=== PATIENT | male | born 1975 | race Caucasian/White ===

== ENCOUNTER 2018-07-30 13:59 | Day surgery (SDC) | payer OTHER ==
[2018-07-30] VITALS (11 sets, daily range): BP systolic 92–122; BP diastolic 56–79; PULSE 56–73; RESP 14–19; Ht 188 cm; Wt 110.4 kg
[~2018-07-30] VITALS: Ht 188 cm; Wt 110.4 kg
[~2018-07-30 13:59] MED LIST: CEFAZOLIN 2 GM/50 ML (PMX) 50 ML IVPB ONE; LACTATED RINGER'S 1,000 ML IV* SCH
--- NOTE | 2018-07-30 14:30 | HPN ---
Date/Time of Note Date/Time of Note DATE: 07/30/18 TIME: 14:30 Interval H&P Admission Note Pt. seen H&P reviewed: No system changes LUIS COSTELLO Jul 30, 2018 14:30
[2018-07-30] MEDS ORDERED: LIRA0.6P SQ (14:48)
[2018-07-30] MEDS ORDERED: INSU100I40 SQ (14:51)
[2018-07-30] MEDS ORDERED: LIDOCAINE 1% (MPF) 30 ML INJ ONE (15:55)
[2018-07-30] MEDS ORDERED: BUPIVACAINE 0.5% (SDV) 30 ML INJ ONE (15:55)
[2018-07-30] MEDS ORDERED: EPHEDrine SULFATE 50 MG/5 ML SYG IV PRN (16:00)
[2018-07-30] MEDS ORDERED: HYDROmorphONE 1 MG/5 ML IV SYRINGE IV PRN ×3 (16:00)
[2018-07-30] MEDS ORDERED: ALBUTEROL 0.083% (NEB) 2.5 MG/3 ML AMP HHN PRN (16:00)
[2018-07-30] MEDS ORDERED: ONDANSETRON 4 MG INJ IV PRN (16:00)
[2018-07-30] MEDS ORDERED: TRIMETHOBENZAMIDE 100 MG/ML VIAL IM PRN (16:00)
[2018-07-30] MEDS ORDERED: MEPERIDINE 25 MG INJ IV PRN (16:00)
[2018-07-30] MEDS ORDERED: MIDAZOLAM 1 MG/ML 2 ML INJ IV PRN (16:00)
[2018-07-30] MEDS ORDERED: PROPOFOL 200 MG INJ ONE (16:00)
[2018-07-30] MEDS ORDERED: IPRATROPIUM (NEB) 0.5 MG/2.5 ML AMP HHN PRN (16:00)
[2018-07-30] MEDS ORDERED: FENTAnyl 50 MCG/ML VIAL IV PRN ×3 (16:00)
[2018-07-30] MEDS ORDERED: LABETALOL HCL 20MG INJ IV PRN (16:00)
[2018-07-30] MEDS ORDERED: hydrALAzine 20 MG INJ IV PRN (16:00)
[2018-07-30] MEDS ORDERED: DIPHENHYDRAMINE 50 MG INJ IV PRN (16:00)
[2018-07-30] MEDS ORDERED: OXYCODONE/ACETAMINOPHEN (5/325) TAB PO PRN ×2 (16:00)
--- NOTE | 2018-07-30 16:03 | PREAC ---
Date/Time of Note Date/Time of Note DATE: 07/30/18 TIME: 16:02 Anesthesia Eval and Record Evaluation Time Pre-Procedure Interview DATE: 07/30/18 TIME: 16:02 Age 43 Sex male NPO: 8 hrs Preoperative diagnosis LEFT CTS Planned procedure LEFT CTR Past Medical History Past Medical History: Includes Endo: Diabetes (1 BS;126) Surgery & Anesthesia Issues No known issue Meds Anticoagulation: No Beta Hari within 24 hr: No Reason Beta Hari not given: Pt. not on B-Hari Reported Medications Insulin Aspart (Niacinamide) (Fiasp 100 Unit/ml Flextouch) 100 Unit/1 Ml Insuln.pen, 0 SQ USE PUMP PT USES PUMP 07/30/18 Liraglutide (Victoza 2-Aiden) 0.6 Mg/0.1 Ml Pen.injctr, 1.2 MG SQ DAILY, SYR 07/30/18 Current Medications Lactated Ringer's 1,000 ml @ 25 mls/hr Q24H IV* ; Start 07/30/18 at 06:00; Stop 07/31/18 at 21:59 Meds reviewed: Yes Allergies Coded Allergies: No Known Allergies (Unverified Allergy, Unknown, 07/30/18) Allergies Reviewed: Yes Labs/Studies Labs Reviewed: Reviewed by anesthesiologist test: N/A Studies: ECG (NL) Pre-procedure Exam Last vitals Vital Signs Date Temp Pulse Resp B/P (MAP) Pulse Ox O2 O2 Flow FiO2 Time Delivery Rate 07/30/18 98.0 73 18 122/79 97 Room Air 14:49 (93) Airway: Adequate mouth opening, Adequate thyromental dist Mallampati: Mallampati II Teeth: Normal Lung: Normal Heart: Normal ASA Physical Status ASA physical status: 2 Emergency: None Planned Anesthetic General/MAC: MAC Planned Pain Management Parenteral pain med, Local by surgeon Pre-operative Attestations Prior to commencing anesthesia and surgery, the patient was re-evaluated, there was verification of: *The patient's identity *The results of appropriate recent lab work and preoperative vital signs *The above evaluation not changing prior to induction *Anesthetic plan, risk benefits, alternative and complications discussed with patient/family; questions answered; patient/family understands, accepts and wishes to proceed. Eliud Ritchie M.D. Jul 30, 2018 16:03
[2018-07-30] MEDS ORDERED: MIDAZOLAM 1 MG/ML 2 ML INJ ONE (16:07)
[2018-07-30] MEDS ORDERED: FENTAnyl 50 MCG/ML VIAL ONE (16:10)
[2018-07-30] MEDS ORDERED: METOCLOPRAMIDE 10 MG INJ ONE (16:12)
[2018-07-30] MEDS ORDERED: KETOROLAC 30 MG INJ ONE (16:12)
--- NOTE | 2018-07-30 16:50 | PAC ---
Date/Time of Note Date/Time of Note DATE: 07/30/18 TIME: 16:49 Post-Anesthesia Notes Post-Anesthesia Note Last documented vital signs Vital Signs Date Temp Pulse Resp B/P (MAP) Pulse Ox O2 O2 Flow FiO2 Time Delivery Rate 07/30/18 98.0 73 18 122/79 97 Room Air 14:49 (93) Activity: WNL Respiratory function: WNL Cardiovascular function: WNL Mental status: Baseline Pain reasonably controlled: Yes Hydration appropriate: Yes Nausea/Vomiting absent: Yes Eliud Ritchie M.D. Jul 30, 2018 16:50
--- NOTE | 2018-07-31 00:34 | OPR ---
DATE OF OPERATION: SURGEON: Luis Shah M.D. ANESTHESIA: Local MAC. PREOPERATIVE DIAGNOSIS: Left carpal tunnel syndrome. POSTOPERATIVE DIAGNOSIS: Left carpal tunnel syndrome. PROCEDURE: Left carpal tunnel release, open. OPERATIVE FINDINGS: Compression of median nerve at the carpal tunnel findings. INDICATION FOR PROCEDURE: This is a 43-year-old male with longstanding left carpal tunnel syndrome w ho failed conservative management and elected to proceed with surgical intervention, understanding th e risks and benefits. DESCRIPTION OF PROCEDURE: The patient was seen in the preoperative area and all of further questions were answered. Again, the informed consent understanding risks and benefits. He was taken to OR [place] [facility] and placed in supine position. Sedation was administered as was Ancef [address] aced on left upper extremity and left upper extremity was prepped with ChloraPrep stick and draped in usual sterile fashion. Esmarch bandage was used to exsanguinate the extremity and tourniquet inflat ed to 250 mmHg. A 2 cm incision at the base of the palm was marked out and 10 mL volume of 0.5% Sulaiman maxx was injected at the surgical site for local anesthesia. A sharp dissection was carried down thr ough the skin and subcutaneous tissue. The palmar aponeurosis was incised along its ulnar border and retractors were deepened to the transverse carpal ligament was divided along its ulnar border approx imately 3 mm radial to the hook of the hamate. Retractors was placed proximally and distally, and th e proximal and distal extents transverse carpal ligament were divided under direct visualization. Wo und was copiously irrigated and skin closed with 5-0 nylon. Xeroform wound followed by sterile gauze , Webril and a bias bandage. Tourniquet deflated after 7 minutes. The patient was awakened from ane sthesia. He was taken to postoperative suite in stable condition, tolerated the procedure well witho ut complication. SPECIMENS: None. ESTIMATED BLOOD LOSS: 5 mL. COUNTS: Sponge, instrument, needle counts correct. TOURNIQUET TIME: 7 minutes. CONDITION ON DISCHARGE: Stable. The patient was given a nonrefillable 5-day prescription for pain medication for her today. Dictated By: LUIS MITCHELL/RANDA Conf#: [id number] [facility]#: [id number]
== END 2018-07-30 17:57 | disposition home or self-care (01) ==
LOC: SDS 13:59
PROVIDERS: ATTEND Orthopaedic Surgery Hand Surgery
DX: G56.02 Carpal tunnel syndrome, left upper limb (principal); E11.9 Type 2 diabetes mellitus without complications
CPT/HCPCS: 64721; 82962; J0690; J1885; J2250; J2765; J3010